=== PATIENT | female | born 1980 | race Hispanic/Latino ===

== ENCOUNTER 2018-06-18 17:11 | Emergency (ER) | payer BC, OTHER ==
[2018-06-18] MEDS ORDERED: Sodium Chloride 0.9% 1,000 ML IV SCH (18:00)
--- NOTE | 2018-06-18 18:06 | ED PDOC ---
HPI: Back Time Seen by Provider: 06/18/18 17:40 Chief Complaint (Nursing): Back Pain Chief Complaint (Provider): Back Pain History Per: Patient History/Exam Limitations: no limitations Onset/Duration Of Symptoms: Days (x2) Additional Complaint(s): Patient is a 38 y/o female who presents to the ED for evaluation of left lower back pain and lower abdominal pain described as a pressure for x2 days. Patient reports having urinary urgency and frequency but denies hematuria or dysuria. Patient notes that she gets kidney stones frequently but denies any UTI. She did not take any medications [employer]. She denies fever, nausea, vomiting, diarrhea, cough, SOB, chills, vaginal bleeding or vaginal discharge. There is no concern for STDs. Her last normal menstrual period was on June 05.] PMD: @ [facility] Past Medical History Reviewed: Historical Data, Nursing Documentation, Vital Signs Vital Signs: Last Vital Signs Temp 98.5 F 06/18/18 17:20 Pulse 98 H 06/18/18 17:20 Resp 16 06/18/18 17:20 BP 142/89 06/18/18 17:20 Pulse Ox 100 06/18/18 17:20 - Medical History PMH: Kidney Stones Other PMH: Ulcerative colitis - Surgical History Surgical History: Cholecystectomy Other surgeries: Laser surgery for kidney stones - Family History Family History: States: Unknown Family Hx - Allergies Allergies/Adverse Reactions: Allergies Allergy/AdvReac Type Severity Reaction Status Date / Time No Known Allergies Allergy Verified 06/18/18 17:17 Review of Systems ROS Statement: Except As Marked, All Systems Reviewed And Found Negative Constitutional: Negative for: Fever, Chills Respiratory: Negative for: Cough, Shortness of Breath Gastrointestinal: Positive for: Abdominal Pain. Negative for: Nausea, Vomiting, Diarrhea Genitourinary Female: Positive for: Frequency. Negative for: Dysuria, Hematuria, Vaginal Discharge, Vaginal Bleeding Musculoskeletal: Positive for: Back Pain Physical Exam - Reviewed Nursing Documentation Reviewed: Yes Vital Signs Reviewed: Yes - Physical Exam Comments: GENERAL APPEARANCE: Patient is awake, alert, oriented x 3, in no acute distress. SKIN: Warm, dry; (-) cyanosis. EYES: (-) conjunctival pallor, (-) scleral icterus. ENMT: Mucous membranes moist. NECK: (-) tenderness, (-) stiffness, (-) lymphadenopathy. CHEST AND RESPIRATORY: (-) rales, (-) rhonchi, (-) wheezes; breath sounds equal bilaterally. HEART AND CARDIOVASCULAR: (-) irregularity; (-) murmur, (-) gallop. ABDOMEN AND GI: (-) distention. (+) mild tenderness in suprapubic area. (+) Le ft CVA tenderness. EXTREMITIES: (-) deformity, (-) edema, (+) distal pulses. NEURO AND PSYCH: Mental status as above; (-) focal findings. - Laboratory Results Result Diagrams: 06/18/18 18:43 06/18/18 18:43 Urine POC: Negative - ECG O2 Sat by Pulse Oximetry: 100 (RA) Pulse Ox Interpretation: Normal Medical Decision Making Medical Decision Making: Time: 17:40 Impression: Urinary symptoms consider kidney stones vs UTI Initial Plan: CT AP CMP Lipase Urine CBC w/ diff IV Fluids 1000 mls/hr Toradol 30 mg IVP Urine Culture 1840 Hematuria noted on U/A. CT abd/pel without contrast ordered to r/o renal stone. 1999 Case endorsed to Roscoe Rowell PA-C due to shift change. Patient pending CT results, re-evaluation, and further disposition. Scribe Attestation: Documented by Guero Moreno, acting as a scribe for Stephy Clemons MD. Provider Scribe Attestation: All medical record entries made by the Scribe were at my direction and personally dictated by me. I have reviewed the chart and agree that the record accurately reflects my personal performance of the history, physical exam, medical decision making, and the department course for this patient. I have also personally directed, reviewed, and agree with the discharge. Disposition - Clinical Impression Clinical Impression: Back pain, Hematuria - Patient ED Disposition Is Patient to be Admitted: Transfer of Care (Roscoe Rowell pending CT results and further disposition.) - Disposition Disposition: Transfer of Care (Roscoe Rowell pending CT results and further disposition.) Disposition Time: 20:00 Condition: STABLE - POA Present On Arrival: None Results - Lab Results Lab Results: 06/18/18 06/18/18 06/18/18 18:43 18:43 18:08 WBC 8.5 RBC 4.09 Hgb 8.6 L Hct 27.9 L MCV 68.3 L MCH 21.1 L MCHC 30.9 L RDW 17.4 H Plt Count 899 H MPV 6.3 L Neut % (Auto) 65.7 Lymph % (Auto) 24.3 [place] % (Auto) 7.2 Eos % (Auto) 1.9 Baso % (Auto) 0.9 Neut # (Auto) 5.6 Lymph # (Auto) 2.1 [place] # (Auto) 0.6 Eos # (Auto) 0.2 Baso # (Auto) 0.1 Sodium 138 Potassium 4.0 Chloride 106 Carbon Dioxide 26 Anion Gap 10 BUN 14 Creatinine 0.4 L Est GFR ( Amer) > 60 Est GFR (Non-Af Amer) > 60 Random Glucose 86 Calcium 9.4 Total Bilirubin 0.2 AST 24 ALT 22 Alkaline Phosphatase 69 Total Protein 8.2 Albumin 4.0 Globulin 4.2 H Albumin/Globulin Ratio 1.0 Lipase 92 Urine Color Yellow Urine Clarity Slighty-cloudy Urine pH 5.0 Ur Specific [place] 1.026 Urine Protein Negative Urine Glucose (UA) Neg Urine Ketones Negative Urine Blood Moderate Urine Nitrate Negative Urine Bilirubin Negative Urine Urobilinogen 0.2-1.0 Ur Leukocyte Esterase Trace Urine RBC (Auto) 33 H Urine Microscopic WBC 6 H Ur Squamous Epith Cells 2 Urine Bacteria Rare
[2018-06-18 18:34] LABS: SQUAMOUS EPITHIAL 2 /hpf (0-5); URINE BACTERIA RARE (<OCC); URINE BILIRUBIN NEGATIVE (NEGATIVE); URINE BLOOD MODERATE (NEGATIVE); URINE CLARITY SLIGHTY-CLOUDY (Clear); URINE COLOR YELLOW (YELLOW); URINE GLUCOSE (UA) NEG (Normal); URINE LEUKOCYTE ESTERASE TRACE Leu/uL (Negative); URINE PROTEIN NEGATIVE (NEGATIVE); URINE UROBILINOGEN 0.2-1.0 mg/dL (0.2-1.0)
[2018-06-18 18:47] LABS: BASO # 0.1 K/uL (0.0-0.2); BASO % 0.9 % (0.0-2.0); EOS # 0.2 K/uL (0.0-0.7); EOS % 1.9 % (0.0-4.0); HEMOGLOBIN 8.6 g/dL (12.0-16.0); LYMPH # 2.1 K/uL (1.0-4.3); LYMPH % 24.3 % (20.0-40.0); MEAN CELL VOLUME 68.3 fl (81.0-99.0); MEAN CORPUSCULAR HEMOGLOBIN 21.1 pg (27.0-31.0); MEAN CORPUSCULAR HGB CONC 30.9 g/dL (33.0-37.0); MEAN PLATELET VOLUME 6.3 fl (7.2-11.7); MONO # 0.6 K/uL (0.0-0.8); MONO % 7.2 % (0.0-10.0); NEUT # 5.6 K/uL (1.8-7.0); NEUT % 65.7 % (50.0-75.0); NRBC % 0.1 % (0.0-0.0); RBC 4.09 Mil/uL (3.80-5.20); RED CELL DISTRIBUTION WIDTH 17.4 % (11.5-14.5); WHITE BLOOD COUNT 8.5 K/uL (4.8-10.8)
[2018-06-18 19:03] LABS: ALT/SGPT 22 U/L (9-52); AST/SGOT 24 U/L (14-36); BLOOD UREA NITROGEN 14 mg/dl (7-17); CALCIUM 9.4 mg/dL (8.4-10.2); GFR NON-AFRICAN AMERICAN > 60; LIPASE 92 U/L (23-300)
--- NOTE | 2018-06-18 20:15 | ED PDOC ---
- Laboratory Results Result Diagrams: 06/18/18 18:43 06/18/18 18:43 Urine POC: Positive - ECG O2 Sat by Pulse Oximetry: 100 (RA) - Progress ED Course And Treament: Case endorsed to gag writer from Kaci ABBOTT pending CT, re-eval CT USArad impression: no acute intra-abdominal abnormality. Approximate 1-2mm tiny calculus midportion right kidney. Small approximate 2x2.3cm left ovarian cyst. Clinical correlation advised On re-eval, patient still reports pain, mostly suprapubic/LLQ area. States different pain from previous kidney stone pain. IV morphine, transvaginal u/s 22:30 USArad ultrasound impression: left ovarian cyst Patient states pain improved Patient aware of anemia, elevated platelets, states c/w her history Patient educated on findings, discharged with rx Cipro (dose given in ED), Naproxen Advised fluids. Follow up PMD within 2-3 days Return precautions given Disposition - Clinical Impression Clinical Impression: UTI (urinary tract infection), Ovarian cyst, Back pain - POA Present On Arrival: None - Disposition Disposition: Routine/Home Disposition Time: 22:32 Condition: IMPROVED Prescriptions: Ciprofloxacin HCl [Cipro] 500 mg PO BID #13 tab Fluconazole [Diflucan] 150 mg PO ONCE #1 tab Naproxen [Naprosyn] 500 mg PO Q12 PRN #20 tablet PRN Reason: Pain, Moderate (4-7) Instructions: Urinary Tract Infections in Adults, Ovarian Cysts Forms: [employer] ([place])
[2018-06-18 22:47] VITALS: BP 119/75; PULSE 70; RESP 18; TEMP 98.4; O2SAT 98
--- NOTE | 2018-06-19 10:29 | CT ---
Date of service: 06/18/2018 PROCEDURE: CT Abdomen and Pelvis without intravenous contrast HISTORY: hematuria, r/o stone COMPARISON: 05/28/2009 TECHNIQUE: Technique. Contrast dose: Radiation dose: Total exam DLP = 466 mGy-cm. This CT exam was performed using one or more of the following dose reduction techniques: Automated exposure control, adjustment of the mA and/or kV according to patient size, and/or use of iterative reconstruction technique. FINDINGS: LOWER THORAX: Unremarkable. LIVER: Unremarkable. No gross lesion or ductal dilatation. GALLBLADDER AND BILE DUCTS: Unremarkable. PANCREAS: Unremarkable. No gross lesion or ductal dilatation. SPLEEN: Unremarkable. ADRENALS: Unremarkable. No mass. KIDNEYS AND URETERS: An approximately 1 mm nonobstructing right renal calculus (series 3, image 74) not appreciated on prior study. No hydronephrosis. Limited evaluation for mass without IV contrast. VASCULATURE: Unremarkable. No aortic aneurysm. No atherosclerotic calcification or mural plaque present. BOWEL: There is similar circumferential sub mucosal increased fat in the rectosigmoid segment and left colon. There may be trace left pericolonic inflammatory changes on series 3 image 116 to 120. These findings are minimal and may not be significantly change with prior exam. Can be seen with normal variants and can be seen with prior history of inflammatory disease. No current suggested of pericolonic inflammatory changes present. No obstruction. No gross mural thickening. APPENDIX: Unremarkable. Normal appendix. PERITONEUM: Unremarkable. No free fluid. No free air. LYMPH NODES: Unremarkable. No enlarged lymph nodes. BLADDER: Unremarkable. REPRODUCTIVE: Prominent central uterine cavity hypodensity may be related to phase of menses.. Same-day pelvic ultrasound suggest mild endometrial thickening within physiologic limits. Bilateral adnexal hypodensities probably relating to ovarian physiologic ovarian cystic changes. A same-day pelvic ultrasound suggest left asymmetrical benign simple cyst. Smaller follicular cystic changes in the right ovary noted. BONES: The geographic lucent lesions in the anterior superior right acetabulum/ischial border are similar in appearance No pathological fracture here seen. This be seen with prominent coalescent geodes and/or coalescent the incidental intraosseous cysts. OTHER FINDINGS: None. IMPRESSION: Approximately 1 mm non-obstructing interval right renal calculus. Inferred benign cystic changes in each ovary left more conspicuous than right ; supported by the now available pelvic ultrasound study Incidentally noted are nonspecific findings compatible with left colonic sub mucosal mild fat infiltration-a finding similarly noted back in 2009. No significant mural thickening or grossly significant appearing pericolonic inflammatory changes-trace pericolonic prior inflammatory changes in the surrounding mesenteric fat are as detailed above. No obstruction. The incidental pericolonic fat changes are additional findings not mention on the initial [facility] rad report. Correlate clinically
--- NOTE | 2018-06-19 12:19 | US ---
Date of service: 06/18/2018 HISTORY: Suprapubic and left pelvic pain. LMP 06/05/2018 with regular cycles. History of laparoscopy for endometriosis. COMPARISON: None available. TECHNIQUE: Transabdominal, transvaginal. Real -time technique with 2D, duplex and color Doppler. FINDINGS: UTERUS: Measures 4.6 x 6.1 x 9.8 cm. Normal in size and appearance. No fibroid or other mass lesion seen. ENDOMETRIUM: Measures 13.8 mm in diameter. Endometrial hypertrophy without focal abnormality. CERVIX: Trace fluid in the cervical canal RIGHT OVARY: Measures 1.8 x 2.4 x 3.0 cm. No solid mass. Normal flow. LEFT OVARY: Measures 2.1 x 2.9 x 3.5 cm. No solid mass. Normal flow. Dominant cyst 1.7 x 1.4 x 2.3 cm. Multiple subcentimeter follicles. FREE FLUID: No significant free fluid noted. OTHER FINDINGS: None. IMPRESSION: Unremarkable uterus. Endometrial hypertrophy without focal or diffuse abnormality. Dominant cyst left ovary. Bilateral follicles less than 1 cm. Concordant results (preliminary interpretation) provided by KAMINI RAO. Procedure Completed: 21:11 Preliminary Report: Dictated and Authenticated: 22:13. Final Interpretation: 12:15. June 19, 2018
== END 2018-06-18 22:56 | disposition home or self-care (01) ==
LOC: H.ER 17:11
DX: N39.0 Urinary tract infection, site not specified (principal); N83.202 Unspecified ovarian cyst, left side; M54.9 Dorsalgia, unspecified; N20.0 Calculus of kidney
CPT/HCPCS: 74176; 76830; 76856; 80053; 81003; 81025; 83690; 85025; 87086; 96374; 96375; 99284; J1885; J2270; J7040